=== PATIENT | female | born 1990 | race Caucasian/White ===

== ENCOUNTER 2020-01-13 07:44 | Emergency (ER) | payer MEDICAID ==
[~2020-01-13] VITALS: Ht 162.6 cm; Wt 75.0 kg
[2020-01-13 07:46] VITALS: BP 143/93
[2020-01-13] MEDS ORDERED: GABA-529 PO (07:49)
== END 2020-01-13 11:45 | disposition home or self-care (01) ==
LOC: ER 07:44
DX: R14.2 Eructation (principal); Z86.59 Personal history of other mental and behavioral disorders
CPT/HCPCS: 74022; 93005; 99283